=== PATIENT | female | born 1965 | race Caucasian/White ===

== ENCOUNTER → 2017-07-03 | Outpatient (CLI) | payer BC ==
[2017-07-04 14:55] LABS: BASO # 0.1 (0.0-0.2); BASO % 0.8 % (0.0-2.0); EOS # 0.5 (0.0-0.7); EOS % 5.9 % (0-4.0); GRAN # 4.6 (1.4-6.5); GRAN % 51.4 % (42.2-75.2); HEMATOCRIT 42.6 % (37.0-47.0); HEMOGLOBIN 14.6 g/dl (12.5-16.0); LYMPH # 2.9 (1.2-3.4); LYMPH % 32.4 % (20.0-51.0); MEAN CELL VOLUME 90 fl (80.0-100.0); MEAN CORPUSCULAR HEMOGLOBIN 31 pg (27.0-31.0); MEAN CORPUSCULAR HGB CONC 34 g/dl (33.0-37.0); MONO # 0.8 (0.1-0.6); MONO % 9.4 % (1.7-9.3); PLATELET COUNT 263 K/mm3 (130-400); RED BLOOD COUNT 4.73 M/mm3 (4.10-5.30); WHITE BLOOD COUNT 8.9 K/mm3 (4.8-10.8)
[2017-07-04 16:30] LABS: ADJUSTED CALCIUM 9.2 mg/dL (8.4-10.2); ALBUMIN 4.2 gm/dL (3.5-5.0); BILIRUBIN,TOTAL 0.6 mg/dL (0.0-1.0); CALCIUM 9.4 mg/dL (8.4-10.2); CHOLESTEROL RISK RATIO 4.7; CREATININE, serum 0.82 mg/dL (0.52-1.25); POTASSIUM 4.1 mmol/L (3.4-5.0); TOTAL PROTEIN 7.4 gm/dL (6.4-8.2)
[2017-07-04 16:58] LABS: TSH w REFLEX 7.19 uIU/mL (0.465-4.680)
== END ==
LOC: COL.LAB 16:54
PROVIDERS: Family Medicine
DX: E66.9 Obesity, unspecified (principal); R53.83 Other fatigue; E03.9 Hypothyroidism, unspecified

== ENCOUNTER → 2018-07-17 | Outpatient (CLI) | payer BC ==
[2018-07-17 17:25] LABS: THYROID STIMULATING HORMONE 0.274 uIU/mL (0.465-4.680)
== END ==
LOC: ZCOL.LAB 16:45
PROVIDERS: Family Medicine
DX: E03.9 Hypothyroidism, unspecified (principal)